=== PATIENT | female | born 1965 | race Caucasian/White ===

== ENCOUNTER 2018-11-22 08:16 | Emergency (ER) | payer OTHER ==
[~2018-11-22] VITALS: Ht 154.9 cm; Wt 73.5 kg
[~2018-11-22 08:16] MED LIST: AMOX1TAB12 PO; CIPRO500 MG PO; FLAGYL500MG PO; INTESTINEX1 CAP PO
[2018-11-22] MEDS ORDERED: ZANTAC 7575 MG (08:51)
[2018-11-22] MEDS ORDERED: ZANTAC150 MG (08:51)
[2018-11-22] MEDS ORDERED: PEPCID20 MG (08:52)
[2018-11-22] MEDS ORDERED: LEVOTHYROXINE25 MCG (08:53)
[2018-11-22] MEDS ORDERED: PNEU16DI2 (08:54)
[2018-11-22] MEDS ORDERED: KETO10TA2 PO (11:31)
[2018-11-22] MEDS ORDERED: MEDROLPACK PO (11:31)
[2018-11-22] MEDS ORDERED: NORFLEX100MG PO (11:31)
== END 2018-11-22 11:40 | disposition home or self-care (01) ==
LOC: ER 08:16
DX: M54.2 Cervicalgia (principal); M25.512 Pain in left shoulder